=== PATIENT | male | born 1955 | race Caucasian/White ===

== ENCOUNTER 2017-03-28 10:11 | Inpatient (IN) | payer MEDICAID ==
[~2017-03-28] VITALS: Ht 172.7 cm; Wt 108.8 kg
[2017-03-28 10:48] LABS: BASOPHILS 0.6 % (0-2); EOSINOPHILS 3.9 % (0-7); HEMATOCRIT 40.5 % (42.0-54.0); HEMOGLOBIN 13.7 g/dL (13.5-17.5); IMMATURE GRANULOCYTES 0.6 % (0-5); LYMPHOCYTES 23.8 % (15-50); MCH 31.9 pg (26.0-34.0); MCHC 33.8 g/dL (31.0-37.0); MCV 94.2 fL (80.0-100.0); MEAN PLATELET VOLUME 9.4 fL (7.4-10.4); MONOCYTES 9.4 % (2-11); NEUTROPHILS 61.7 % (40-80); PLATELET COUNT 224 10x3/uL (130-400); RDW 14.5 % (11.5-14.5)
[2017-03-28 11:07] LABS: ALBUMIN 2.7 g/dL (3.4-5.0); ANION GAP 13.4 mmol/L (8-16); BILIRUBIN - TOTAL 0.29 mg/dL (0.2-1.3); CALCIUM 8.1 mg/dL (8.5-10.1); CARBON DIOXIDE 22.8 mmol/L (21.0-32.0); CREATININE - SERUM 1.7 mg/dL (0.6-1.3); POTASSIUM - SERUM 4.2 mmol/L (3.5-5.1); PROTEIN - SERUM 6.3 g/dL (6.4-8.2)
[2017-03-28 13:16] LABS: APPEARANCE CLEAR (CLEAR); BILIRUBIN NEGATIVE (NEGATIVE); COLOR YELLOW (YELLOW); GLUCOSE NEGATIVE (NEGATIVE); KETONE NEGATIVE (NEGATIVE); NITRITE NEGATIVE (NEGATIVE); PROTEIN 3+ mg/dL (NEGATIVE); SPECIFIC GRAVITY 1.025 (1.005-1.020); UROBILINOGEN NORMAL (NORMAL)
[2017-03-28 13:17] LABS: BACTERIA MODERATE /hpf (NONE SEEN); EPITHELIAL CELLS 0-5 /hpf (0-5); RED CELLS - URINE 0-5 /hpf (0-5); WHITE CELLS - URINE 0-5 /hpf (0-5)
[2017-03-28 13:18] LABS: GRANULAR CAST 0-5 /lpf (NONE SEEN); HYALINE CAST 0-5 /lpf (NONE SEEN)
--- NOTE | 2017-03-28 15:40 | NUR ---
RECIEVED TO ROOM 2228 FROM ER VIA STRETCHER. IV TO R HAND PATENT. NS INFUSING AT 75 CC/HR VIA PUMP. DENIES ANY COMPLAINT OF PAIN AT THIS TIME. REPORTS RECTAL BLEEDING SINCE WEDNESDAY.
[2017-03-28] MEDS ORDERED: ZESTRIL40 MG PO (15:42)
[2017-03-28] MEDS ORDERED: AMBIEN10 MG PO (15:43)
[2017-03-28 15:48] VITALS: BP 128/77; BMI 35.0
[2017-03-28 16:11] VITALS: BP 128/77
--- NOTE | 2017-03-28 18:00 | NUR ---
NO CHANGES NOTED AT THIS TIME.
--- NOTE | 2017-03-28 19:00 | NUR ---
REPORT RECEIVED AND CARE OF PT ASSUMED. PT LYING IN SUPINE POSITION WITH EYES CLOSED AND EVEN RESPIRATIONS. IV IN RIGHT HAND PATENT WITH NS INFUSING AT 75 ML /HR. TELEMETRY IN PLACE AND PT READING SR AT 75 AT THIS ASSESSMENT. WILL MONITOR [place] FOR NEEDS.
[2017-03-28 20:00] VITALS: BP 93/63
--- NOTE | 2017-03-28 20:33 | NUR ---
HS MEDICATIONS GIVEN. WILL CONTINUE TO MONITOR FOR NEEDS.
--- NOTE | 2017-03-28 20:40 | NUR ---
PT CONSENTED FOR EGD W/ TIVA. WITNESSED AND PLACED IN CHART.
[2017-03-29 04:00] VITALS: BP 98/58
[2017-03-29 04:47] LABS: BASOPHILS 0.4 % (0-2); HEMATOCRIT 32.6 % (42.0-54.0); HEMOGLOBIN 10.8 g/dL (13.5-17.5); LYMPHOCYTES 24.8 % (15-50); MCH 31.3 pg (26.0-34.0); MCHC 33.1 g/dL (31.0-37.0); MCV 94.5 fL (80.0-100.0); MEAN PLATELET VOLUME 9.5 fL (7.4-10.4); MONOCYTES 10.8 % (2-11); PLATELET COUNT 192 10x3/uL (130-400); RBC 3.45 10x6/uL (4.20-6.10); RDW 14.7 % (11.5-14.5)
[2017-03-29 05:10] LABS: ANION GAP 9.5 mmol/L (8-16); CALCIUM 7.3 mg/dL (8.5-10.1); CARBON DIOXIDE 25.2 mmol/L (21.0-32.0); CREATININE - SERUM 1.8 mg/dL (0.6-1.3); POTASSIUM - SERUM 4.7 mmol/L (3.5-5.1)
--- NOTE | 2017-03-29 08:00 | NUR ---
PT AWAKE AND ALERT ORINETD X 3 LUNGS CLAER NPO AFTER CL BREAKFAST FOR EGD TODAY
[2017-03-29 08:02] VITALS: BP 124/77
--- NOTE | 2017-03-29 08:10 | NUR ---
PT HERE FOR GI BLEED FOR THIS VISIT IV TO RIGHT HAND PATENT AND INTACT AT THIS TIME SRX2 BED AT LOWEST SETTING CALL LIGHT WITHIN REACH WILL CONTINUE TO MONITOR
[2017-03-29 12:20] VITALS: BP 123/75
[2017-03-29 14:48] VITALS: Ht 172.7 cm; Wt 108.8 kg
--- NOTE | 2017-03-29 15:00 | NUR ---
PT TO GI LAB AT THIS TIME FOR EGD
--- NOTE | 2017-03-29 17:50 | NUR ---
PT RETURNED FROM GI LAB NO DISTRESS NTOED
[2017-03-29 20:00] VITALS: BP 166/98
--- NOTE | 2017-03-29 20:15 | NUR ---
LEVAQUIN INFUSING THROUGH IV, RIGHT HAND IV SITE SWOLLEN. TURNED OF IV PUMP, DISCONNECTED IV.
[2017-03-30 04:00] VITALS: BP 155/100
[2017-03-30 05:49] LABS: INR 0.99 (0.85-1.17); PROTIME 12.7 SECONDS (11.6-15.0)
[2017-03-30 06:08] LABS: BASOPHILS 0.4 % (0-2); EOSINOPHILS 3.4 % (0-7); HEMATOCRIT 31.3 % (42.0-54.0); HEMOGLOBIN 10.2 g/dL (13.5-17.5); IMMATURE GRANULOCYTES 0.7 % (0-5); LYMPHOCYTES 24.7 % (15-50); MCH 30.6 pg (26.0-34.0); MCHC 32.6 g/dL (31.0-37.0); MEAN PLATELET VOLUME 9.8 fL (7.4-10.4); MONOCYTES 14.5 % (2-11); NEUTROPHILS 56.3 % (40-80); PLATELET COUNT 173 10x3/uL (130-400); RBC 3.33 10x6/uL (4.20-6.10); RDW 14.6 % (11.5-14.5); WBC 6.7 10x3/uL (4.8-10.8)
[2017-03-30 06:17] LABS: ALBUMIN 2.5 g/dL (3.4-5.0); ANION GAP 9.5 mmol/L (8-16); BILIRUBIN - TOTAL 0.26 mg/dL (0.2-1.3); CALCIUM 7.5 mg/dL (8.5-10.1); CREATININE - SERUM 1.5 mg/dL (0.6-1.3); POTASSIUM - SERUM 4.5 mmol/L (3.5-5.1); PROTEIN - SERUM 5.5 g/dL (6.4-8.2)
[2017-03-30 08:41] VITALS: BP 164/112
--- NOTE | 2017-03-30 08:45 | NUR ---
PATIENT SITTING UP IN BED WITH IV INTACT. STATED HE WANTED TO GO SMOKE. EXPLAINED TO PATIENT NOT ALLOWED TO GO SMOKE ON HOSPITAL PROPERTY. FAMILY AT BEDSIDE. PATIENT RECIEVED SCHEDULED MEDS. CALL LIGHT WITHIN REACH.
--- NOTE | 2017-03-30 09:10 | NUR ---
PATIENT UP AMBULATING IN HALLS.
[2017-03-30 11:55] VITALS: BP 170/106
--- NOTE | 2017-03-30 12:50 | NUR ---
PATIENT UP AMBULATING IN PRICE WAY WITH AT SIDE.
[2017-03-30 15:34] VITALS: BP 139/93
--- NOTE | 2017-03-30 16:17 | NUR ---
Patient Name: CAROLYN CORREA Admission Status: ER Accout number: [id number] Admission Date: 03-28-2017 : 1955 Admission Diagnosis:GASTROINTESTINAL HEMORRHAGE, UNSPECIFIED Attending: CINDY Current LOS: 2 Anticipated DC Date: 04-02-2017 Planned Disposition: Home Primary Insurance: [facility] MEDICAID HMO Discharge Planning Comments: CM MET WITH PATIENT AND (THI) REGARDING D/C NEEDS AND PLANS. PATIENTS STATED SHE WILL DRIVE HIM HOME WHEN DISCHARGED. THERE ARE 3 STEPS TO ENTER HOME W/RAILS AND NO STAIRS INSIDE. PATIENT IS INDEPENDENT WITH HIS CARE AND HAS A CANE IF NEEDED. PATIENT DOES NOT HAVE A PCP AND HE USES [facility]. PATIENT IS REFUSING HOME HEALTH AT THIS TIME. CM WILL CONTINUE TO FOLLOW PATIENT WITH D/C NEEDS AND PLANS. PCP NONE [facility]- [phone] THI () [phone] Associate Creative Director: Cici Fabian Is the patient Alert and Oriented? Yes 0 * How many steps to enter\exit or inside your home? 3 W/RAILS 0 * PCP NONE 0 * Pharmacy [facility] 0 * Preadmission Environment Home with Family 0 * ADLs Independent 0 * Equipment Cane 0 * List name and contact numbers for known caregivers / representatives who currently or will assist patient after discharge: THI () [phone] * Community resources currently utilized None 0 * Additional services required to return to the preadmission environment? Yes 0 * Can the patient safely return to the preadmission environment? Yes 0 * Has this patient been hospitalized within the prior 30 days at any hospital? Yes 0 Grand Total: 0
--- NOTE | 2017-03-30 18:42 | NUR ---
PATIENT IN ROOM WITH NO COMPLAINTS AT THIS TIME. IV INTACT. FAMILY AT BEDSIDE. CALL LIGHT WITHIN REACH.
--- NOTE | 2017-03-30 19:40 | NUR ---
PT ASSESSMENT COMPLETE AWAKE AND ALERT ORIENTED X 3 LUNGS CLEAR BILATERALLY PT FAMILY AT SIDE.
--- NOTE | 2017-03-30 19:45 | NUR ---
PATIENT IS AWAKE, ALERT AND ORIENTED X'S 4. NO SIGNS OF DISTRESS NOTED. SITTING IN RECLINER BESIDE BED. BOTH DENY NEEDS. BED IN LOWEST POSITION, CALL LIGHT IN REACH.
[2017-03-30 20:00] VITALS: BP 159/89
[2017-03-31] VITALS: BP 148/95
[2017-03-31 04:00] VITALS: BP 140/89
[2017-03-31 06:12] LABS: HEMATOCRIT 31.5 % (42.0-54.0); HEMOGLOBIN 10.4 g/dL (13.5-17.5); IMMATURE GRANULOCYTES 1.5 % (0-5); LYMPHOCYTES 19.5 % (15-50); MCH 31.8 pg (26.0-34.0); MEAN PLATELET VOLUME 9.3 fL (7.4-10.4); MONOCYTES 15.5 % (2-11); NEUTROPHILS 58.5 % (40-80); PLATELET COUNT 207 10x3/uL (130-400); RBC 3.27 10x6/uL (4.20-6.10); RDW 14.7 % (11.5-14.5)
[2017-03-31 06:24] LABS: MCV 96.3 fL (80.0-100.0)
[2017-03-31 06:58] LABS: ALBUMIN 2.7 g/dL (3.4-5.0); BILIRUBIN - TOTAL 0.33 mg/dL (0.2-1.3); CALCIUM 7.9 mg/dL (8.5-10.1); CARBON DIOXIDE 24.5 mmol/L (21.0-32.0); CREATININE - SERUM 1.3 mg/dL (0.6-1.3); POTASSIUM - SERUM 4.5 mmol/L (3.5-5.1); PROTEIN - SERUM 5.5 g/dL (6.4-8.2)
--- NOTE | 2017-03-31 07:00 | NUR ---
PT RESTED WELL LAST PM COMPLAINT OF HEADACHE THIS AM
--- NOTE | 2017-03-31 07:00 | NUR ---
REPORT RECIEVED ASSUMED CARE. PATIENT IN BED WITH IV INTACT. COMPLAINTS OF JAIMES. NIGHT NURSE TO GIVE PAIN PILL. PATIENT CALL LIGHT WITHIN REACH.
[2017-03-31 08:05] VITALS: BP 154/86
--- NOTE | 2017-03-31 08:30 | NUR ---
WAS TOLD BY SALES WAREHOUSE DRIVER THAT PATIENTS STATED THAT IF I DONT COME IN THERE IN 5 MINUTES TO GIVE HIM HIS PAIN MEDS SHE WAS GOING TO CALL MY DRUG SAFETY SPECIALIST. WENT TO ROOM AND EXPLAINED TO PATIENT THAT MY BOSS WAS AT THE NURSES STATION IF SHE NEEDS TO SPEAK WITH HER OR THAT SHE CAN CALL [id number] FOR THE TOOL FILER HAND FOR ANY PROBLEMS. EXPLAINED TO PATIENT THAT IF HE NEEDS PAIN MEDS AT ANY TIME I DO NOT NEED AN ULTIMATUM THAT I WILL BRING IT WITH NO PROBLEMS. SCHEDULED MEDS AND PAIN MEDS GIVEN TO PATIENT. PATIENT STATED THAT SHE HAS BEEN WAITING FOR 2 HOURS FOR HER TO RECIEVE MEDS. EXPLAINED TO HER THAT I WAS JUST TOLD THAT PATIENT NEEDED MEDS AND THAT IF HE DOES NEED THEM ANY MORE I WOULD GET HIM FOR HIM. PATIENT VERBALIZED UNDERSTANDING. CALL LIGHT WITHIN REACH.
[2017-03-31 12:04] VITALS: BP 119/83
--- NOTE | 2017-03-31 14:27 | NUR ---
NUTRITION F/U CHART REVIEWED. DIET ADVANCED TO REG SOFT/BLAND. WILL PROVIDE DIET, MONITOR INTAKE. RD FOLLOWING
--- NOTE | 2017-03-31 15:40 | NUR ---
PATIENT RECIEVED PAIN MEDS AT THIS TIME. IV INTACT. NO PROBLEMS. CALL LIGHT WITHIN REACH.
[2017-03-31 16:23] VITALS: BP 147/99
--- NOTE | 2017-03-31 18:18 | NUR ---
PATIENT IN BED WITH IV INTACT. NO COMPLAINTS AT THIS TIME. FAMILY AT BEDSIDE. CALL LIGHT WITHIN REACH.
--- NOTE | 2017-03-31 19:40 | NUR ---
PATIENT OUT OF ROOM
[2017-03-31 20:00] VITALS: BP 168/90
--- NOTE | 2017-03-31 20:19 | NUR ---
PATIENT AMBULATED BACK INTO ROOM
--- NOTE | 2017-03-31 20:51 | NUR ---
PATIENT REQUESTED PAIN PILL FOR HEADACHE ADMINISTERED TYLENOL #3 PER PRN ORDER. FLUSHED IV WITH 10ML SALINE FLUSH HOOKED HIM BACK UP TO IVF. PATIENT AND DENY NEEDS AT THIS TIME. PATIENT IS LAYING IN BED WATCHING TV. HOB 30 DEGREES. RESPIRATIONS ARE EVEN AND UNLABORED ON ROOM AIR. ASSESSMENT COMPLETED AT THIS TIME.
[2017-04-01] VITALS: BP 110/70
[2017-04-01 04:00] VITALS: BP 141/82
[2017-04-01 06:02] LABS: BASOPHILS 0.8 % (0-2); EOSINOPHILS 4.9 % (0-7); HEMATOCRIT 31.2 % (42.0-54.0); HEMOGLOBIN 10.3 g/dL (13.5-17.5); IMMATURE GRANULOCYTES 0.8 % (0-5); LYMPHOCYTES 23.3 % (15-50); MCH 31.5 pg (26.0-34.0); MCV 95.4 fL (80.0-100.0); MEAN PLATELET VOLUME 9.3 fL (7.4-10.4); MONOCYTES 15.7 % (2-11); NEUTROPHILS 54.5 % (40-80); PLATELET COUNT 205 10x3/uL (130-400); RBC 3.27 10x6/uL (4.20-6.10); RDW 14.6 % (11.5-14.5)
[2017-04-01 06:46] LABS: ALBUMIN 2.5 g/dL (3.4-5.0); ANION GAP 11.4 mmol/L (8-16); BILIRUBIN - TOTAL 0.25 mg/dL (0.2-1.3); CARBON DIOXIDE 26.8 mmol/L (21.0-32.0); CREATININE - SERUM 1.4 mg/dL (0.6-1.3); POTASSIUM - SERUM 4.2 mmol/L (3.5-5.1); PROTEIN - SERUM 5.8 g/dL (6.4-8.2)
[2017-04-01 08:38] VITALS: BP 178/100
[2017-04-01] MEDS ORDERED: FLORAJEN3 CAPS460 MG PO (11:44)
[2017-04-01] MEDS ORDERED: FLAGYL500 MG PO (11:44)
[2017-04-01] MEDS ORDERED: Levaquin PO (11:45)
[2017-04-01 12:59] VITALS: BP 156/83
== END 2017-04-01 13:00 | disposition home or self-care (01) | DRG 378 ==
LOC: D.ER 10:11 → D.MS 13:50
PROVIDERS: Emergency Medicine; Family Medicine; Internal Medicine Gastroenterology; Nurse Practitioner Family; ADMIT Family Medicine
PROC: 0DB78ZX Excision of Stomach, Pylorus, Via Natural or Artificial Opening Endoscopic, Diagnostic (ICD-10-PCS; principal; 2017-03-29 17:00)
DX: K57.93 Diverticulitis of intestine, part unspecified, without perforation or abscess with bleeding (principal); D62 Acute posthemorrhagic anemia; N17.9 Acute kidney failure, unspecified; I12.9 Hypertensive chronic kidney disease with stage 1 through stage 4 chronic kidney disease, or unspecified chronic kidney disease; N18.9 Chronic kidney disease, unspecified; K29.70 Gastritis, unspecified, without bleeding; K44.9 Diaphragmatic hernia without obstruction or gangrene; J44.9 Chronic obstructive pulmonary disease, unspecified

== ENCOUNTER 2017-07-20 06:37 | Inpatient (IN) | payer MEDICAID ==
[~2017-07-20] VITALS: Ht 172.7 cm; Wt 117.9 kg
[~2017-07-20 06:37] MED LIST: AMBIEN10 MG PO; FLAGYL500 MG PO; FLORAJEN3 CAPS460 MG PO; Levaquin PO; ZESTRIL40 MG PO
[2017-07-20 07:53] LABS: APPEARANCE HAZY (CLEAR); BACTERIA MANY /hpf (NONE SEEN); BILIRUBIN NEGATIVE (NEGATIVE); COLOR DK YELLOW (YELLOW); EPITHELIAL CELLS 0-5 /hpf (0-5); GLUCOSE NEGATIVE (NEGATIVE); KETONE NEGATIVE (NEGATIVE); MUCUS <1+ /lpf (NONE SEEN); NITRITE NEGATIVE (NEGATIVE); PROTEIN 3+ mg/dL (NEGATIVE); RED CELLS - URINE 0-5 /hpf (0-5); SPECIFIC GRAVITY 1.025 (1.005-1.020); UROBILINOGEN NORMAL (NORMAL)
[2017-07-20 07:54] LABS: HEMATOCRIT 40.9 % (42.0-54.0); HEMOGLOBIN 12.5 g/dL (13.5-17.5); MCH 25.8 pg (26.0-34.0); MCHC 30.6 g/dL (31.0-37.0); MCV 84.5 fL (80.0-100.0); MEAN PLATELET VOLUME 8.8 fL (7.4-10.4); PLATELET COUNT 221 10x3/uL (130-400); RBC 4.84 10x6/uL (4.20-6.10); RDW 17.3 % (11.5-14.5)
[2017-07-20 08:08] LABS: APTT 28.1 SECONDS (22.8-39.4); INR 1.09 (0.85-1.17); PROTIME 13.7 SECONDS (11.6-15.0)
[2017-07-20 08:09] LABS: D-DIMER-QUANTITATIVE 2.14 ug/mLFEU (0.20-0.54)
[2017-07-20 08:12] LABS: ALBUMIN 2.7 g/dL (3.4-5.0); ALKALINE PHOSPHATASE 56 U/L (46-116); ALT (SGPT) 30 U/L (10-68); BILIRUBIN - TOTAL 0.37 mg/dL (0.2-1.3); CALC OSMOLALITY 291 mosm/kg (275-300); CALCIUM 7.7 mg/dL (8.5-10.1); CARBON DIOXIDE 27.6 mmol/L (21.0-32.0); CHLORIDE - SERUM 102 mmol/L (98-107); CREATININE - SERUM 2.8 mg/dL (0.6-1.3); GLUCOSE 142 mg/dL (74-106); POTASSIUM - SERUM 5.1 mmol/L (3.5-5.1); PROTEIN - SERUM 6.7 g/dL (6.4-8.2); SODIUM 139 mmol/L (136-145); UREA NITROGEN 47 mg/dL (7-18); eGFR NON AFRICAN AMERICAN 25 mL/min (90-120)
[2017-07-20 08:28] LABS: CKMB 1.8 U/L (0.0-3.6); CREATINE KINASE 103 UL (21-232)
[2017-07-20 08:30] LABS: TROPONIN-I 0.868 ng/mL (0.000-0.060)
[2017-07-20 08:33] LABS: ANISOCYTOSIS OCC; LYMPHOCYTES 8 % (15-50); MONOCYTES 5 % (2-11); NEUTROPHILS 81 % (40-80)
[2017-07-20 09:13] LABS: PLATELET ESTIMATE NORMAL
[2017-07-20 11:49] LABS: ERYTHROCYTE SEDIMENTATION RATE 23 mm/hr (0-20)
[2017-07-20 11:57] LABS: CKMB 2.1 U/L (0.0-3.6); CREATINE KINASE 88 UL (21-232)
[2017-07-20 12:02] LABS: TROPONIN-I 0.833 ng/mL (0.000-0.060)
[2017-07-20 14:14] VITALS: BP 122/92; BMI 39.6
[2017-07-20 19:15] LABS: CKMB 2.4 U/L (0.0-3.6); CREATINE KINASE 108 UL (21-232)
[2017-07-20 20:00] VITALS: BP 150/101
[2017-07-20 21:13] VITALS: BP 140/87
[2017-07-20 23:47] LABS: CKMB 2.3 U/L (0.0-3.6); CREATINE KINASE 111 UL (21-232)
[2017-07-20 23:50] LABS: TROPONIN-I 0.746 ng/mL (0.000-0.060)
[2017-07-21 04:00] VITALS: BP 159/106
[2017-07-21 05:07] LABS: BASOPHILS 0.2 % (0-2); EOSINOPHILS 0.2 % (0-7); HEMATOCRIT 41.3 % (42.0-54.0); HEMOGLOBIN 12.4 g/dL (13.5-17.5); IMMATURE GRANULOCYTES 0.4 % (0-5); MCH 25.2 pg (26.0-34.0); MCV 83.9 fL (80.0-100.0); MEAN PLATELET VOLUME 9.4 fL (7.4-10.4); MONOCYTES 6.2 % (2-11); PLATELET COUNT 246 10x3/uL (130-400); RBC 4.92 10x6/uL (4.20-6.10); RDW 17.6 % (11.5-14.5); WBC 18.1 10x3/uL (4.8-10.8)
[2017-07-21 06:37] LABS: ANION GAP 15.3 mmol/L (8-16); CARBON DIOXIDE 27.3 mmol/L (21.0-32.0); CREATININE - SERUM 2.6 mg/dL (0.6-1.3); MAGNESIUM - SERUM 1.7 mg/dL (1.8-2.4); POTASSIUM - SERUM 4.6 mmol/L (3.5-5.1)
[2017-07-21] MEDS ORDERED: HYDROCHLOROTHIA25 MG PO (09:02)
[2017-07-21 09:22] VITALS: BP 183/125
[2017-07-21 12:04] VITALS: Ht 172.7 cm; Wt 117.9 kg
[2017-07-21 12:44] VITALS: BP 145/108
[2017-07-21 16:36] VITALS: BP 138/101
[2017-07-21 20:00] VITALS: BP 172/105
[2017-07-22] VITALS: BP 158/112
[2017-07-22 04:00] VITALS: BP 153/98
[2017-07-22 04:58] LABS: BASOPHILS 0.3 % (0-2); EOSINOPHILS 0.4 % (0-7); HEMATOCRIT 38.3 % (42.0-54.0); HEMOGLOBIN 11.7 g/dL (13.5-17.5); IMMATURE GRANULOCYTES 0.4 % (0-5); LYMPHOCYTES 9.6 % (15-50); MCH 25.8 pg (26.0-34.0); MCHC 30.5 g/dL (31.0-37.0); MCV 84.4 fL (80.0-100.0); MEAN PLATELET VOLUME 9.9 fL (7.4-10.4); MONOCYTES 10.5 % (2-11); NEUTROPHILS 78.8 % (40-80); RBC 4.54 10x6/uL (4.20-6.10); RDW 17.9 % (11.5-14.5)
[2017-07-22 05:05] LABS: PLATELET COUNT 186 10x3/uL (130-400); WBC 11.8 10x3/uL (4.8-10.8)
[2017-07-22 05:08] LABS: ANION GAP 12.6 mmol/L (8-16); CALCIUM 7.9 mg/dL (8.5-10.1); CARBON DIOXIDE 31.1 mmol/L (21.0-32.0); POTASSIUM - SERUM 4.7 mmol/L (3.5-5.1)
[2017-07-22 05:15] LABS: CREATININE - SERUM 1.9 mg/dL (0.6-1.3)
[2017-07-22 08:11] VITALS: BP 170/118
[2017-07-22 12:46] VITALS: BP 180/84
[2017-07-22 15:54] VITALS: BP 184/106
[2017-07-22 20:00] VITALS: BP 142/81
[2017-07-23] VITALS: BP 134/80
[2017-07-23 04:00] VITALS: BP 145/91
[2017-07-23 04:48] LABS: BASOPHILS 0.3 % (0-2); EOSINOPHILS 1.4 % (0-7); HEMATOCRIT 38.1 % (42.0-54.0); HEMOGLOBIN 11.1 g/dL (13.5-17.5); IMMATURE GRANULOCYTES 0.4 % (0-5); LYMPHOCYTES 17.2 % (15-50); MCH 25.2 pg (26.0-34.0); MCHC 29.1 g/dL (31.0-37.0); MEAN PLATELET VOLUME 9.2 fL (7.4-10.4); MONOCYTES 12.6 % (2-11); NEUTROPHILS 68.1 % (40-80); RBC 4.41 10x6/uL (4.20-6.10); RDW 17.8 % (11.5-14.5)
[2017-07-23 04:58] LABS: MCV 86.4 fL (80.0-100.0); PLATELET COUNT 233 10x3/uL (130-400); WBC 7.8 10x3/uL (4.8-10.8)
[2017-07-23 05:17] LABS: ANION GAP 11.8 mmol/L (8-16); CALCIUM 8.4 mg/dL (8.5-10.1); CARBON DIOXIDE 31.4 mmol/L (21.0-32.0); CREATININE - SERUM 1.7 mg/dL (0.6-1.3); POTASSIUM - SERUM 4.2 mmol/L (3.5-5.1)
[2017-07-23 08:40] VITALS: BP 157/107
[2017-07-23 13:01] VITALS: BP 187/120
[2017-07-23 19:57] VITALS: BP 115/61
[2017-07-23 23:48] VITALS: BP 155/79
[2017-07-24 04:03] VITALS: BP 152/90
[2017-07-24 05:29] LABS: BASOPHILS 0.5 % (0-2); EOSINOPHILS 3.4 % (0-7); HEMATOCRIT 38.8 % (42.0-54.0); HEMOGLOBIN 11.3 g/dL (13.5-17.5); IMMATURE GRANULOCYTES 0.4 % (0-5); LYMPHOCYTES 17.5 % (15-50); MCH 25.1 pg (26.0-34.0); MCHC 29.1 g/dL (31.0-37.0); MCV 86.2 fL (80.0-100.0); MEAN PLATELET VOLUME 9.1 fL (7.4-10.4); MONOCYTES 11.9 % (2-11); NEUTROPHILS 66.3 % (40-80); PLATELET COUNT 237 10x3/uL (130-400); RDW 17.6 % (11.5-14.5); WBC 7.3 10x3/uL (4.8-10.8)
[2017-07-24 05:39] LABS: ANION GAP 9.2 mmol/L (8-16); CALCIUM 8.2 mg/dL (8.5-10.1); CREATININE - SERUM 1.5 mg/dL (0.6-1.3); POTASSIUM - SERUM 4.2 mmol/L (3.5-5.1)
[2017-07-24 07:42] VITALS: BP 139/120
[2017-07-24 12:24] VITALS: BP 149/95
[2017-07-24 15:35] VITALS: BP 135/87
[2017-07-24 21:13] VITALS: BP 162/97
[2017-07-24 23:47] VITALS: BP 132/79
[2017-07-25 04:00] VITALS: BP 158/99
[2017-07-25 04:59] LABS: BASOPHILS 0.6 % (0-2); EOSINOPHILS 2.6 % (0-7); HEMATOCRIT 37.8 % (42.0-54.0); HEMOGLOBIN 10.9 g/dL (13.5-17.5); IMMATURE GRANULOCYTES 1.4 % (0-5); LYMPHOCYTES 20.8 % (15-50); MCH 24.7 pg (26.0-34.0); MCHC 28.8 g/dL (31.0-37.0); MCV 85.7 fL (80.0-100.0); MEAN PLATELET VOLUME 8.8 fL (7.4-10.4); MONOCYTES 14.1 % (2-11); NEUTROPHILS 60.5 % (40-80); PLATELET COUNT 231 10x3/uL (130-400); RBC 4.41 10x6/uL (4.20-6.10); RDW 17.5 % (11.5-14.5); WBC 7.7 10x3/uL (4.8-10.8)
[2017-07-25 05:18] LABS: ANION GAP 7.9 mmol/L (8-16); CALCIUM 7.8 mg/dL (8.5-10.1); CARBON DIOXIDE 34.2 mmol/L (21.0-32.0); CREATININE - SERUM 1.7 mg/dL (0.6-1.3); POTASSIUM - SERUM 4.1 mmol/L (3.5-5.1)
[2017-07-25 08:37] VITALS: BP 193/123
[2017-07-25 11:39] VITALS: BP 169/121
[2017-07-25] MEDS ORDERED: LASIX40 MG PO (12:13)
[2017-07-25] MEDS ORDERED: KEFLEX500 MG PO (12:15)
== END 2017-07-25 19:28 | disposition home or self-care (01) | DRG 871 ==
LOC: D.ER 06:37 → D.ICU 11:24 → D.EDHOLD 11:24 → D.MS 11:24 → D.ICU 12:43 → D.MS 22:49
PROVIDERS: Family Medicine; Internal Medicine Nephrology; Radiology Diagnostic Radiology
PROC: 0S993ZZ Drainage of Right Hip Joint, Percutaneous Approach (ICD-10-PCS; principal; 2017-07-21 14:00)
DX: A41.9 Sepsis, unspecified organism (principal); R65.21 Severe sepsis with septic shock; J96.21 Acute and chronic respiratory failure with hypoxia; J96.22 Acute and chronic respiratory failure with hypercapnia; I50.23 Acute on chronic systolic (congestive) heart failure; L03.115 Cellulitis of right lower limb; N17.9 Acute kidney failure, unspecified; N39.0 Urinary tract infection, site not specified; I11.0 Hypertensive heart disease with heart failure; B95.61 Methicillin susceptible Staphylococcus aureus infection as the cause of diseases classified elsewhere; D72.825 Bandemia; K75.9 Inflammatory liver disease, unspecified; J44.9 Chronic obstructive pulmonary disease, unspecified

== ENCOUNTER 2017-09-26 09:56 | Inpatient (IN) | payer MEDICAID ==
[~2017-09-26] VITALS: Ht 172.7 cm; Wt 114.0 kg
[2017-09-26] VITALS (11 sets, daily range): BP systolic 91–137; BP diastolic 68–97; BMI 39.6
--- NOTE | ~2017-09-26 | EC ---
PATIENT:CAROLYN CORREA DATE OF SERVICE: 09/26/17 SEX: M MEDICAL RECORD: [id number] DATE OF : [birth year] LOCATION:[facility] AGE OF PATIENT: 62 ADMISSION DATE: 09/26/17 REFERRING PHYSICIAN: INTERPRETING PHYSICIAN: BENJAMÍN PYLE MD ECHOCARDIOGRAM REPORT ECHO CHARGES 5 ECHO LIMITED Date: 09/27 1 DOPPLER ECHO COLOR FLOW 2 DOPPLER ECHO PULSE CLINICAL DIAGNOSIS: CHF ECHOCARDIOGRAPHIC MEASUREMENTS (adult normal given) AC root (d.<3.7cm) 0 cm LV Septum d (<1.2 cm> 0 cm Valve Excursion 0 cm LV Septum (systole) 0 cm Left Atria (s.<4.0cm> 0 cm LVPW d(<1.2cm) 0 cm RV (d.<2.3cm) 0 cm LVPW (sytole) 0 cm LV diastole(<5.6CM) 0 cm MV E-F(>70mm/sec) 0 cm LV systole 0 cm LVOT Diameter 0 cm MV exc.(>10mm) 0 cm Est.ejection fraction (50-75%) % DOPPLER: LVIT cm/sec A 0 cm/sec E 0 cm/sec LA 0 cm/sec RVSP 37.3 mmHg LVOT 0 cm/sec AOP1/2T 0 m/s Asc. Ao 0 cm/sec RVOT 0 cm/sec RA 0 cm/sec PA 0 cm/sec AV Gradient Peak 0 mmHg AV Mean 0 mmHg AV Area 0 cm MV Gradient Peak 0 mmHg MV Mean 0 mmHg MV Area 0 cm COMMENTS: LIMITED STUDY (2-D,COLOR,DOPPLER) COMPLETE ECHO DONE ON 07/21/17 Manager General: Juli SIMEON [employer]eral Workers: 1 Dr. Pyle TAPE# PACS Pericardial Effusion N DATE OF SERVICE: 09/27/2017 PROCEDURE: Limited echo for ejection fraction. FINDINGS: Left ventricular chamber size is within normal limits. Left ventricular systolic function is lower limits of normal to mildly reduced at 45% to 50%. TRANSINT:[id number] Voice Confirmation ID: [id number] DOCUMENT ID: [id number] ECHOCARDIOGRAM REPORT [id number] BALA CORREAN Mike BENJAMÍN PYLE MD at 8340 CC: [id number] DICTATION DATE: 09/27/17 1327 CARE REP: 09/27/17 1337 DIS IN 09/27/17 [place] [id number] [place] [id number]
--- NOTE | ~2017-09-26 | CN ---
PATIENT NAME:CAROLYN FRIEDMAN MEDICAL RECORD: [id number] : 55 LOCATION:[facility] ADMIT DATE: 09/26/17 ACCOUNT: [id number] CONSULTING PHYSICIAN: URBAN EDWARD MD REFERRING PHYSICIAN: PASCUAL CHRISTIANSON MD DATE OF CONSULTATION: 09/26/2017 CONSULT REQUESTING PHYSICIAN: Dr. Christianson REASON FOR CONSULTATION: Acute hypoxic hypercapnic respiratory failure. HISTORY OF PRESENT ILLNESS: Mr. Friedman is a 62-year-old gentleman who has a history of congestive heart failure, systolic dysfunction, EF 40%. There is no family available, but the nurse did speak with his . He was fine yesterday, but this morning the patient was dyspneic, combative, hypoxic and brought into the ER. The patient was given some Haldol and Ativan IV. Since then, the patient is more sleepy and lethargic, but he opens eyes by calling his name. Also, workup showed that on the ABG his pH was 7.42, pCO2 was 53. Repeat ABG, the CO2 was 69.2 after the Ativan and Haldol injection. REVIEW OF SYSTEMS: The detail is not obtainable. PAST MEDICAL HISTORY: 1. Cellulitis and infection of the right hip and thigh. 2. Hepatitis C. 3. Congestive heart failure with EF of 40%, systolic dysfunction. 4. History of compression fracture of the joint, replacement of the right. PAST SURGICAL HISTORY: 1. He has hip replacement. 2. Surgery for hydrocele and hernia repair. ALLERGIES: HE IS ALLERGIC TO FLEXERIL. MEDICATIONS: On [facility] is reviewed. PERSONAL AND SOCIAL HISTORY: The patient is current everyday smoker. He is a nondrinker. FAMILY HISTORY: Significant for cardiovascular diseases. PHYSICAL EXAMINATION: GENERAL: Now, the patient is very sleepy, but he is arousable. VITAL SIGNS: The blood pressure is 121/97, pulse is 101, respiration is 18, temperature 98.4, and SPO2 is 96% on 100% oxygen on BiPAP at rate of 12, IPAP of 12 and EPAP of 6. HEENT: Conjunctivae are pink. Sclerae are not icteric. NECK: Supple. There is no JVD. CHEST: There are bilateral crackles. No wheezing. HEART: Rhythm regular, normal sound, no murmur. ABDOMEN: Soft, bowel sounds present. GENITOURINARY: Rectal exam is deferred. There is swelling of the scrotum and penis. SKIN: There is cellulitis of the right thigh. EXTREMITIES: There is pedal edema. CONSULT REPORT [id number] CAROLYN FRIEDMAN CENTRAL NERVOUS SYSTEM: There are no obvious intracranial abnormalities, but the patient is arousable and open his eyes by calling. LABORATORY DATA: CBC: The WBC is 26,000, hemoglobin 13.8, hematocrit is 45.9, the platelet count 217. Chemistry: Sodium 136, potassium is 5, BUN is 37, creatinine 1.9. ABG: The pH is 7.42 on arrival, pCO2 is 53.9, the pO2 is 54. The repeat ABG: The pH is 7.33, pCO2 is 69.2, the pO2 is 82. IMPRESSION: 1. Lwsvn-au-nefrhqa hypoxic hypercapnic respiratory failure. 2. Respiratory acidosis. 3. Pulmonary edema. 4. Bilateral pneumonia, most likely hospital-acquired pneumonia with recent hospitalization. 5. Congestive heart failure with systolic dysfunction, ejection fraction of 40%. 6. Leukocytosis. 7. Cellulitis of the right hip and thigh. 8. Hepatitis C. RECOMMENDATION: 1. Start on Levaquin and vancomycin. Stop the Teflaro and start on cefepime. 2. We will continue the BiPAP. I will adjust the settings and repeat the ABG after an hour. 3. Start on Diamox. Start methylprednisolone IV, albuterol and ipratropium nebulizer, Brovana and budesonide nebulizer. We will give him Narcan time 1. 4. Consult Dr. Yarbrough, Dr. Cabrera and the cardiology has already been consulted. Dr. Christianson, thank you for involving me in the care of Mr. Friedman. Critical care time is 50 minutes. TRANSINT:[id number] Voice Confirmation ID: [id number] DOCUMENT ID: [id number] URBAN EDWARD MD at 1806 CC: PASCUAL CHRISTIANSON MD [id number] DICTATION DATE: 09/26/171819 MILITARY SCIENCE TEACHER: 09/26/172014 DIS IN 09/27/17 [facility] [address] [place] [address]
[~2017-09-26 09:56] MED LIST changes: +HYDROCHLOROTHIA25 MG PO; +KEFLEX500 MG PO; +LASIX40 MG PO
[2017-09-26 10:46] LABS: APPEARANCE CLOUDY (CLEAR); BILIRUBIN NEGATIVE (NEGATIVE); COLOR YELLOW (YELLOW); GLUCOSE NEGATIVE (NEGATIVE); KETONE NEGATIVE (NEGATIVE); NITRITE NEGATIVE (NEGATIVE); PROTEIN 3+ mg/dL (NEGATIVE); SPECIFIC GRAVITY 1.015 (1.005-1.020); UROBILINOGEN NORMAL (NORMAL)
[2017-09-26 10:46] LABS: HEMATOCRIT 45.9 % (42.0-54.0); HEMOGLOBIN 13.8 g/dL (13.5-17.5); MCHC 30.1 g/dL (31.0-37.0); MCV 86.6 fL (80.0-100.0); PLATELET COUNT 217 10x3/uL (130-400); RDW 20.4 % (11.5-14.5)
[2017-09-26 10:47] LABS: BACTERIA MODERATE /hpf (NONE SEEN); EPITHELIAL CELLS 0-5 /hpf (0-5); RED CELLS - URINE 0-5 /hpf (0-5); WHITE CELLS - URINE 0-5 /hpf (0-5)
[2017-09-26 10:51] LABS: NEUTROPHILS 90.4 % (40-80)
[2017-09-26 10:52] LABS: BASOPHILS 0.2 % (0-2); EOSINOPHILS 0 % (0-7); IMMATURE GRANULOCYTES 0.5 % (0-5); LYMPHOCYTES 2.9 % (15-50)
[2017-09-26 10:57] LABS: ALBUMIN 2.8 g/dL (3.4-5.0); ALKALINE PHOSPHATASE 71 U/L (46-116); ALT (SGPT) 27 U/L (10-68); BILIRUBIN - TOTAL 0.64 mg/dL (0.2-1.3); CALC OSMOLALITY 283 mosm/kg (275-300); CALCIUM 8.9 mg/dL (8.5-10.1); CARBON DIOXIDE 32.1 mmol/L (21.0-32.0); CHLORIDE - SERUM 97 mmol/L (98-107); CREATININE - SERUM 1.9 mg/dL (0.6-1.3); GLUCOSE 151 mg/dL (74-106); PROTEIN - SERUM 7.5 g/dL (6.4-8.2); SODIUM 136 mmol/L (136-145); UREA NITROGEN 37 mg/dL (7-18); eGFR NON AFRICAN AMERICAN 38 mL/min (90-120)
[2017-09-26 10:59] LABS: MAGNESIUM - SERUM 1.8 mg/dL (1.8-2.4)
[2017-09-26 11:01] LABS: TROPONIN-I < 0.017 ng/mL (0.000-0.060)
[2017-09-26 11:35] LABS: UDS - AMPHET NEGATIVE QUAL (NEGATIVE); UDS - BARB NEGATIVE QUAL (NEGATIVE); UDS - BENZO NEGATIVE QUAL (NEGATIVE); UDS - COCAINE NEGATIVE QUAL (NEGATIVE); UDS - OPIATE POSITIVE QUAL (NEGATIVE); UDS - PCP NEGATIVE QUAL (NEGATIVE); UDS - THC NEGATIVE QUAL (NEGATIVE)
[2017-09-27] VITALS (17 sets, daily range): BP systolic 108–145; BP diastolic 69–99; Ht 172.7 cm; Wt 114.0 kg
[2017-09-27 04:29] LABS: BASOPHILS 0.1 % (0-2); EOSINOPHILS 0 % (0-7); HEMATOCRIT 42.6 % (42.0-54.0); HEMOGLOBIN 12.7 g/dL (13.5-17.5); IMMATURE GRANULOCYTES 0.3 % (0-5); LYMPHOCYTES 3.1 % (15-50); MCH 25.8 pg (26.0-34.0); MCHC 29.8 g/dL (31.0-37.0); MCV 86.4 fL (80.0-100.0); NEUTROPHILS 94.5 % (40-80); PLATELET COUNT 251 10x3/uL (130-400); RBC 4.93 10x6/uL (4.20-6.10); RDW 20.9 % (11.5-14.5); WBC 18.1 10x3/uL (4.8-10.8)
[2017-09-27 04:44] LABS: ANION GAP 10.2 mmol/L (8-16); CALCIUM 8.5 mg/dL (8.5-10.1); CARBON DIOXIDE 37.3 mmol/L (21.0-32.0); CREATININE - SERUM 2.1 mg/dL (0.6-1.3); POTASSIUM - SERUM 4.5 mmol/L (3.5-5.1)
[2017-09-27 15:17] LABS: INR 1.27 (0.85-1.17); PROTIME 15.4 SECONDS (11.6-15.0)
== END 2017-09-27 17:00 | disposition short-term general hospital (02) | DRG 871 ==
LOC: D.ER 09:56 → D.ICU 12:52 → D.EDHOLD 12:52 → D.ICU 13:25
PROVIDERS: Emergency Medicine; General Practice
PROC: 5A09357 Assistance with Respiratory Ventilation, Less than 24 Consecutive Hours, Continuous Positive Airway Pressure (ICD-10-PCS; principal; 2017-09-26)
DX: A41.9 Sepsis, unspecified organism (principal); I50.23 Acute on chronic systolic (congestive) heart failure; J18.9 Pneumonia, unspecified organism; J96.21 Acute and chronic respiratory failure with hypoxia; J96.22 Acute and chronic respiratory failure with hypercapnia; J81.1 Chronic pulmonary edema; E87.2 Acidosis; T84.51XA Infection and inflammatory reaction due to internal right hip prosthesis, initial encounter; N17.9 Acute kidney failure, unspecified; I11.0 Hypertensive heart disease with heart failure; B19.20 Unspecified viral hepatitis C without hepatic coma; F17.200 Nicotine dependence, unspecified, uncomplicated; D72.829 Elevated white blood cell count, unspecified; J44.9 Chronic obstructive pulmonary disease, unspecified

== ENCOUNTER 2017-10-31 21:29 | Inpatient (IN) | payer MEDICAID ==
[~2017-10-31] VITALS: Ht 172.7 cm; Wt 119.1 kg
--- NOTE | ~2017-10-31 | CN ---
PATIENT NAME:CAROLYN FRIEDMAN MEDICAL RECORD: [id number] : 55 LOCATION:[facility] ADMIT DATE: 10/31/17 ACCOUNT: [id number] CONSULTING PHYSICIAN: URBAN EDWARD MD REFERRING PHYSICIAN: WESTLEY CHRISTIANSON MD DATE OF CONSULTATION: 11/01/2017 CONSULT REQUESTING PHYSICIAN: Westley Christianson MD REASON FOR CONSULTATION: Pneumonia, left lower lobe; fever; shortness of breath. HISTORY OF PRESENT ILLNESS: Mr. Friedman is a 62-year-old gentleman who has history of COPD and congestive heart failure. According to the patient, he has fever of 109. Also he has very short of breath and lethargic. The patient came into the ER. The patient has respiratory acidosis and temperature is 100.9. REVIEW OF THE SYSTEMS: As in history of present illness. PAST MEDICAL HISTORY: 1. Congestive heart failure. 2. Hypertension. 3. COPD. 4. Chronic hypoxic respiratory failure. 5. Recent possible osteomyelitis. PAST SURGICAL HISTORY: 1. He had hip replacement. 2. Herniorrhaphy. ALLERGIES: HE IS ALLERGIC TO FLEXERIL. MEDICATIONS: [facility] was reviewed. PERSONAL AND SOCIAL HISTORY: The patient still continues to smoke. He is a nondrinker. FAMILY HISTORY: Noncontributory. PHYSICAL EXAMINATION: GENERAL: Now, the patient is lying comfortably in bed. He is not in acute distress. VITAL SIGNS: The blood pressure is 119/78; pulse is 95; respiration is 20; temperature is 99, T-max was 100.9; SpO2 is 87% to 88% on BiPAP with 60% oxygen. HEENT: Conjunctivae are pink. Sclerae not icteric. NECK: Neck is supple. No JVD. CHEST: The chest excursion is minimal on both sides. Crackle heard at the left base. There is wheezing. HEART: Rhythm regular. Normal sound. No murmur. ABDOMEN: Abdomen is soft. Bowel sounds present. No hepatosplenomegaly. RECTAL: Deferred. EXTREMITIES: No cyanosis. No clubbing. There is no pedal edema. SKIN: The skin is warm. Normal turgor. CENTRAL NERVOUS SYSTEM: The patient is awake and alert. There is no obvious cranial nerve abnormality. The gait was not tested. CONSULT REPORT [id number] CAROLYN FRIEDMAN LABORATORY DATA: ABG; the pH is 7.27, pCO2 is 81, pO2 is 53, bicarb is 37.9. Chemistry; sodium is 140, potassium 4.5, BUN is 25, creatinine 1.6. CBC; WBC 6.3, hemoglobin 12.3, hematocrit 42.8, and platelet count 202. IMPRESSION: 1. Iedmv-bz-jjhhcle hypoxic hypercapnic respiratory failure. 2. Respiratory acidosis. 3. Pneumonia, left lower lobe, most likely hospital-acquired pneumonia with the patient's recent hospitalization. 4. Congestive heart failure, chronic systolic dysfunction with acute flareup. 5. Acute exacerbation of COPD. 6. Tobacco dependence syndrome. RECOMMENDATION: 1. Start albuterol/ipratropium nebulizer, Brovana and budesonide nebulizer. Continue Levaquin IV. I will add cefepime to cover for gram-negative hemal and hospital-acquired pneumonia. 2. Methylprednisolone IV. 3. Continue Lasix IV. 4. Follow labs and chest radiograph. 5. Diamox 250 mg IV q. 8 hourly. 6. Followup labs and chest radiograph. Dr. Christianson, thank you for involving me in the care of Mr. Friedman. TRANSINT:[id number] Voice Confirmation ID: [id number] DOCUMENT ID: [id number] URBAN EDWARD MD at 1110 CC: [id number] DICTATION DATE: 11/01/171924 RACECAR DRIVER: 11/01/171945 DIS IN 11/04/17 [place] [id number] [place] [address]
[2017-10-31 22:02] LABS: BASOPHILS 0.5 % (0-2); EOSINOPHILS 1.6 % (0-7); HEMATOCRIT 44.9 % (42.0-54.0); IMMATURE GRANULOCYTES 1.2 % (0-5); LYMPHOCYTES 16.9 % (15-50); MCH 25.1 pg (26.0-34.0); MCV 86.7 fL (80.0-100.0); MEAN PLATELET VOLUME 9.4 fL (7.4-10.4); MONOCYTES 12.7 % (2-11); NEUTROPHILS 67.1 % (40-80); PLATELET COUNT 229 10x3/uL (130-400); RBC 5.18 10x6/uL (4.20-6.10)
[2017-10-31 22:19] LABS: INR 0.95 (0.85-1.17); PROTIME 12.3 SECONDS (11.6-15.0)
[2017-10-31 22:21] LABS: ALBUMIN 3.2 g/dL (3.4-5.0); ALKALINE PHOSPHATASE 91 U/L (46-116); ALT (SGPT) 36 U/L (10-68); BILIRUBIN - TOTAL 0.47 mg/dL (0.2-1.3); CALC OSMOLALITY 280 mosm/kg (275-300); CALCIUM 8.5 mg/dL (8.5-10.1); CARBON DIOXIDE 35.1 mmol/L (21.0-32.0); CHLORIDE - SERUM 98 mmol/L (98-107); CREATININE - SERUM 1.7 mg/dL (0.6-1.3); GLUCOSE 123 mg/dL (74-106); POTASSIUM - SERUM 5.4 mmol/L (3.5-5.1); PROTEIN - SERUM 7.9 g/dL (6.4-8.2); SODIUM 138 mmol/L (136-145); UREA NITROGEN 25 mg/dL (7-18); eGFR NON AFRICAN AMERICAN 44 mL/min (90-120)
[2017-10-31 22:30] VITALS: BP 157/67
[2017-10-31 22:32] LABS: CKMB 1.3 U/L (0.0-3.6); CREATINE KINASE 85 UL (21-232); PRO BNP 4951 pg/mL (0-125)
[2017-10-31 22:34] LABS: TROPONIN-I < 0.017 ng/mL (0.000-0.060)
[2017-10-31 23:56] VITALS: BP 157/92
[2017-11-01] VITALS (7 sets, daily range): BP systolic 119–139; BP diastolic 78–98; Ht 172.7 cm; Wt 119.1 kg
[2017-11-01] MEDS ORDERED: NORVASC10 MG PO (00:36)
[2017-11-01] MEDS ORDERED: LASIX40 MG PO (00:37)
[2017-11-01] MEDS ORDERED: POTASSIUM CL ER 10 M (00:38)
[2017-11-01] MEDS ORDERED: ZANTAC300 MG PO (00:39)
[2017-11-01] MEDS ORDERED: HYDROCODON-ACE1 EAC9 PO (00:41)
[2017-11-01] MEDS ORDERED: CENTRUM MEN'S1 EACH PO (00:42)
[2017-11-01 04:33] LABS: BASOPHILS 0.6 % (0-2); EOSINOPHILS 1.3 % (0-7); HEMATOCRIT 42.8 % (42.0-54.0); HEMOGLOBIN 12.3 g/dL (13.5-17.5); IMMATURE GRANULOCYTES 1.3 % (0-5); LYMPHOCYTES 19.1 % (15-50); MCH 24.8 pg (26.0-34.0); MCHC 28.7 g/dL (31.0-37.0); MCV 86.5 fL (80.0-100.0); MEAN PLATELET VOLUME 9.1 fL (7.4-10.4); MONOCYTES 16.9 % (2-11); NEUTROPHILS 60.8 % (40-80); PLATELET COUNT 202 10x3/uL (130-400); RBC 4.95 10x6/uL (4.20-6.10); WBC 6.3 10x3/uL (4.8-10.8)
[2017-11-01 04:54] LABS: ANION GAP 7.7 mmol/L (8-16); CALCIUM 8.4 mg/dL (8.5-10.1); CARBON DIOXIDE 35.8 mmol/L (21.0-32.0); CREATININE - SERUM 1.6 mg/dL (0.6-1.3)
[2017-11-01 05:20] LABS: POTASSIUM - SERUM 4.5 mmol/L (3.5-5.1)
[2017-11-02] VITALS: BP 122/76
[2017-11-02 04:00] VITALS: BP 126/70
[2017-11-02 06:02] LABS: EOSINOPHILS 2.1 % (0-7); HEMATOCRIT 43.7 % (42.0-54.0); HEMOGLOBIN 12.5 g/dL (13.5-17.5); IMMATURE GRANULOCYTES 0.9 % (0-5); LYMPHOCYTES 19.1 % (15-50); MCH 24.6 pg (26.0-34.0); MCHC 28.6 g/dL (31.0-37.0); MCV 85.9 fL (80.0-100.0); MEAN PLATELET VOLUME 9.3 fL (7.4-10.4); MONOCYTES 12.4 % (2-11); NEUTROPHILS 64.5 % (40-80); PLATELET COUNT 239 10x3/uL (130-400); RBC 5.09 10x6/uL (4.20-6.10); RDW 20.3 % (11.5-14.5); WBC 6.8 10x3/uL (4.8-10.8)
[2017-11-02 07:04] LABS: ANION GAP 7.7 mmol/L (8-16); CALCIUM 8.1 mg/dL (8.5-10.1); CARBON DIOXIDE 37.7 mmol/L (21.0-32.0); CREATININE - SERUM 1.9 mg/dL (0.6-1.3); POTASSIUM - SERUM 4.4 mmol/L (3.5-5.1)
[2017-11-02 08:39] VITALS: BP 125/86
[2017-11-02 11:53] VITALS: BP 103/77
[2017-11-02 15:56] VITALS: BP 133/72
[2017-11-02 23:47] VITALS: BP 133/88
[2017-11-03 04:05] VITALS: BP 154/84
[2017-11-03 06:23] LABS: BASOPHILS 0.6 % (0-2); EOSINOPHILS 2.2 % (0-7); HEMATOCRIT 43.9 % (42.0-54.0); HEMOGLOBIN 12.8 g/dL (13.5-17.5); IMMATURE GRANULOCYTES 0.9 % (0-5); LYMPHOCYTES 16.9 % (15-50); MCH 24.5 pg (26.0-34.0); MCHC 29.2 g/dL (31.0-37.0); MCV 84.1 fL (80.0-100.0); MEAN PLATELET VOLUME 9.2 fL (7.4-10.4); MONOCYTES 14.7 % (2-11); NEUTROPHILS 64.7 % (40-80); PLATELET COUNT 198 10x3/uL (130-400); RBC 5.22 10x6/uL (4.20-6.10); WBC 6.9 10x3/uL (4.8-10.8)
[2017-11-03 06:28] LABS: ANION GAP 10.1 mmol/L (8-16); CALCIUM 8.3 mg/dL (8.5-10.1); CARBON DIOXIDE 35.9 mmol/L (21.0-32.0); CREATININE - SERUM 1.9 mg/dL (0.6-1.3)
[2017-11-03 08:42] VITALS: BP 127/88
[2017-11-03 13:00] VITALS: BP 134/82
[2017-11-03 16:32] VITALS: BP 123/73
[2017-11-03 20:51] VITALS: BP 90/68
[2017-11-04 04:26] VITALS: BP 146/64
[2017-11-04 06:45] LABS: BASOPHILS 0.5 % (0-2); EOSINOPHILS 1.4 % (0-7); HEMATOCRIT 42.4 % (42.0-54.0); HEMOGLOBIN 12.2 g/dL (13.5-17.5); IMMATURE GRANULOCYTES 0.5 % (0-5); LYMPHOCYTES 8.7 % (15-50); MCH 24.7 pg (26.0-34.0); MCHC 28.8 g/dL (31.0-37.0); MEAN PLATELET VOLUME 8.7 fL (7.4-10.4); MONOCYTES 13.4 % (2-11); NEUTROPHILS 75.5 % (40-80); RBC 4.93 10x6/uL (4.20-6.10); RDW 19.9 % (11.5-14.5)
[2017-11-04 06:52] LABS: PLATELET COUNT 241 10x3/uL (130-400); WBC 8.7 10x3/uL (4.8-10.8)
[2017-11-04 07:07] LABS: ANION GAP 5.2 mmol/L (8-16); CALCIUM 8.5 mg/dL (8.5-10.1); CARBON DIOXIDE 36.8 mmol/L (21.0-32.0)
[2017-11-04 08:39] VITALS: BP 123/84
== END 2017-11-04 13:50 | disposition left against medical advice (07) | DRG 291 ==
LOC: D.ER 21:29 → D.EDHOLD 23:40 → D.MS 23:40
PROVIDERS: Emergency Medicine; Internal Medicine Pulmonary Disease
PROC: 05HB33Z Insertion of Infusion Device into Right Basilic Vein, Percutaneous Approach (ICD-10-PCS; principal; 2017-11-03)
PROC: B54MZZA Ultrasonography of Right Upper Extremity Veins, Guidance (ICD-10-PCS; 2017-11-03)
DX: I13.0 Hypertensive heart and chronic kidney disease with heart failure and stage 1 through stage 4 chronic kidney disease, or unspecified chronic kidney disease (principal); J18.9 Pneumonia, unspecified organism; I50.23 Acute on chronic systolic (congestive) heart failure; E87.2 Acidosis; J44.0 Chronic obstructive pulmonary disease with (acute) lower respiratory infection; J44.1 Chronic obstructive pulmonary disease with (acute) exacerbation; N17.9 Acute kidney failure, unspecified; N18.9 Chronic kidney disease, unspecified; F17.200 Nicotine dependence, unspecified, uncomplicated; E87.5 Hyperkalemia; E86.0 Dehydration; Z91.19 Patient's noncompliance with other medical treatment and regimen; R06.03 Acute respiratory distress